=== PATIENT | male | born 1975 | race Caucasian/White ===

== ENCOUNTER → 2019-08-07 | Day surgery (SDC) | payer BC ==
[2019-08-03 09:08] LABS: BASOPHILS % 0.6 % (0.0-1.0); EOSINOPHILS # (AUTO) 0.1 (0.0-0.4); EOSINOPHILS % 2.2 % (0.0-6.0); HEMATOCRIT 41.9 % (38.2-49.6); HEMOGLOBIN 14.7 g/dL (14.0-18.0); LYMPHOCYTES # (AUTO) 1.7 (1.0-3.2); LYMPHOCYTES % 33.2 % (18.0-39.1); MEAN CORPUSCULAR HEMOGLOBIN 32.2 pg (28-32); MEAN CORPUSCULAR HGB CONC 35.1 g/dL (31-35); MEAN CORPUSCULAR VOLUME 91.7 fL (81-99); MONOCYTES # (AUTO) 0.5 (0.2-0.8); MONOCYTES % 10.5 % (4.4-11.3); NEUTROPHILS # (AUTO) 2.6 (2.1-6.9); NEUTROPHILS % 53.1 % (38.7-80.0); PLATELET COUNT 279 x10e3/uL (140-360); RED BLOOD COUNT 4.57 x10e6/uL (4.3-5.7); RED CELL DISTRIBUTION WIDTH 12.1 % (11.7-14.4)
--- NOTE | 2019-08-03 10:34 | Diagnostic Imaging Report ---
X-ray chest 2 views Comparison: None History: Preop Findings: Central airways unremarkable. Heart size normal. Aorta unremarkable. The mediastinal lines stripes and interfaces unremarkable. No pleural effusion. No pneumothorax. No focal lung disease. Visualized skeletal structures and upper abdomen unremarkable. Impression: No significant abnormality. Signed by: Favio Amin MD on 08/03/2019 10:31 AM
[~2019-08-07] MED LIST: ACETAMINOPHEN 1000 MG/100 ML IV ONE; AMLODIPINE BESYL5 MG PO; ASPIRIN81 MG PO; BUPIVACAINE 0.25% 30ML SDV INJ ONE; BUPIVACAINE HCL 0.5% INJ 30 ML VIAL INJ ONE; CARVEDILOL3.125 MG PO; CEFAZOLIN SOD 1 GM/NS 50ML 100 ML IV ONE; CLOPIDOGREL75 MG PO; DEXAMETHASONE SOD PHOS INJ 4 MG/ML VIAL ONE; FENTANYL CITRATE/PF 100MCG/2 ML INJ ONE; GLYCOPYRROLATE INJ 0.2 MG/ML VIAL ONE; LIDOCAINE HCL 2% LOCAL INJ 5 ML SDV VIAL INJ ONE; MIDAZOLAM HCL 2 MG/2 ML VIAL ONE; NEOSTIGMINE 1 MG/ML 10ML VIAL ONE; ONDANSETRON HCL INJ 2MG/ML 2ML 2 MG/ML VIAL ONE; PROPOFOL IV EMULSION 10 MG/ML 20 ML VIAL ONE; REPATHA SY140 MG/1 M SQ; ROCURONIUM BROMIDE 10 MG/ML 5ML VIAL IV ONE; SEVOFLURANE INHAL SOLN 250 ML PEN BTL ONE
--- OUTSIDE RECORDS SUMMARY | 2019-08-07 05:50 | XMS REPORT ---
Author Author [facility] Organization [facility] Address Unknown Phone Unavailable Care Team Providers Care Direct Casting Operator Name Role Phone Christine KIRKLAND Unavailable Unavailable Problems This patient has no known problems. Allergies, Adverse Reactions, Alerts This patient has no known allergies or adverse reactions. Medications This patient has no known medications. Results Test Description Test Time Test Comments Text Results Atomic Results Result Comments CHEST 2 VIEWS 2019-08-03 10:29:00 [place] [address] Patient Name: MARIA TERESA SALDIVAR MR #: [id number] : 1975 Age/Sex: 44/M Req #: [id number] Adm Physician: Ordered by: ELLEN KIRKLAND MD Report #: [id number] Location: OR Room/Bed: Procedure: [id number] DX/CHEST 2 VIEWS Exam Date: 08/03/19 Exam Time: 0845 REPORT STATUS: Signed X-ray chest 2 views Comparison: None History: Preop Findings: Central airways unremarkable. Heart size normal. Aorta unremarkable. The mediastinal lines stripes and interfaces unremarkable. No pleural effusion. No pneumothorax. No focal lung disease. Vis ualized skeletal structures and upper abdomen unremarkable. Impression: No significant abnormality. Signed by: Young Amin MD on 08/03/2019 10:31 AM Dictated By: YOUNG AMIN MD 1031 Transcribed By: VARINDER on 08/03/19 1031 COPY TO: ELLEN KIRKLAND MD
--- NOTE | 2019-08-07 07:10 | NUR ---
SPIRITUAL CARE - Pre-Surgery Assessment: Pt in bed. Pt's at bedside. Pt reported supportive attention from family and friends. Intervention: I provided pastoral presence, hospitality, and sympathetic listening. I acquainted pt with availability of demand generation manager while hospitalized. Outcome: Pt expressed appreciation for visit. No need for follow up indicated at this time. RONNIE Moorelain Spiritual Care Department O: [phone]
[2019-08-07 14:35] VITALS: BP 120/83
--- NOTE | 2019-08-07 17:32 | Operative Report ---
DATE OF PROCEDURE: 08/07/2019 SURGEON: Ahmet Tavarez MD PREOPERATIVE DIAGNOSIS: Ventral hernia. POSTOPERATIVE DIAGNOSIS: Ventral hernia. PREOPERATIVE INDICATION: Treat disease, prevent complications related to hernia such as incarceration or strangulation. PROCEDURE: Laparoscopic ventral hernia repair with mesh. ANESTHESIA: General. HANGERSMITH: Castro Ward, surgical 1st retail assistant (needed due to complexity of case). FLUIDS: As per anesthesia. ESTIMATED BLOOD LOSS: 5 mL. DRAINS: None. COMPLICATIONS: None. SPECIMENS: None. GRAFTS: 11.[address] mesh. FINDINGS: Small non-incarcerated ventral hernia. PROCEDURE IN DETAIL: The patient was brought to the operating room, was intubated under general endotracheal anesthesia. He was sterilely prepped and draped in the usual fashion. A preprocedure pause was performed identifying the patient, use of perioperative antibiotics, intended procedure, and the staff surgeon. Access was gained via a 5 mm left subcostal incision using a Veress needle. Abdomen was insufflated. Additional 12 mm trocar was placed in the left lower quadrant. A ventral hernia near the periumbilical region was identified. There was also some evidence for diastasis more cephalad to this. I then requested an 11.[address] mesh. This was introduced to the field and tacked circumferentially with the tacking device in order to cover the ventral hernia defect with excellent overlap. I then closed the large port site with 0 Vicryl suture using a Tarun Berna technique. We then verified hemostasis, removed the trocars, and desufflated the abdomen. Incision sites were closed with 4-0 Monocryl suture in a subcu fashion. Dermabond dressings were applied. 0.25% bupivacaine was used both at the preperitoneal incision sites. The patient tolerated the procedure well. Type of wound was type 1, clean. Ahmet Tavarez MD [facility] [place]/MODL /[id number]
== END | disposition home or self-care (01) ==
LOC: OR 05:47
PROVIDERS: ATTEND Surgery
DX: K43.9 Ventral hernia without obstruction or gangrene (principal); K76.0 Fatty (change of) liver, not elsewhere classified; G47.33 Obstructive sleep apnea (adult) (pediatric); I25.10 Atherosclerotic heart disease of native coronary artery without angina pectoris; I10 Essential (primary) hypertension; K21.9 Gastro-esophageal reflux disease without esophagitis; M19.90 Unspecified osteoarthritis, unspecified site; Z01.810 Encounter for preprocedural cardiovascular examination; Z01.812 Encounter for preprocedural laboratory examination; Z01.818 Encounter for other preprocedural examination; Z11.59 Encounter for screening for other viral diseases; Z79.02 Long term (current) use of antithrombotics/antiplatelets; Z79.82 Long term (current) use of aspirin; Z95.5 Presence of coronary angioplasty implant and graft
CPT/HCPCS: 36415; 49652; 71046; 85025; 87635; 93005; C1781; C1898; J0131; J0690; J1100; J2001; J2250; J2405; J2704; J2710; J3010